=== PATIENT | female | born 1975 | race Caucasian/White ===

== ENCOUNTER 2025-02-12 10:34 | Day surgery (SDC) | payer OTHER, SELFPAY ==
[2025-02-12 10:57] VITALS: BP 129/54; PULSE 72; RESP 16; TEMP 36.4; O2SAT 98; BMI 42.5
[2025-02-12 11:04] LABS: Internal QC Validated? YES +Cl - CLEAR BKGD; Pregnancy, Urine Negative Negative
[2025-02-12] MEDS: Lidocaine 1% /Epi 1:100 (20ml) 20 ML Vial (12:02)
[2025-02-12 12:04] VITALS: BP 121/61; BP 128/59; O2SAT 100
--- NOTE | 2025-02-12 12:18 | PCM.OPRPT ---
Operative Report (Standard) Operative Information Date of Procedure: 02/12/25 Pre-Operative Diagnosis: Right carpal tunnel syndrome Post-Operative Diagnosis: Right carpal tunnel syndrome Surgery/Procedure Performed: Right open carpal tunnel release inspector floor: Yes Supply Chain Technician: Gela Jensen Tasks completed by warehouse administrative assistant: Opening & closing Type of Anesthesia: Local RN Documented Start/Stop Times: Operation Date: 02/12/25 12:15 Case Time Into Pre-Op 02/12/25 10:57 Out of Pre-Op 02/12/25 12:01 Into Room 02/12/25 12:02 Procedure Start 02/12/25 12:10 Procedure Start Time: 12:10 Procedure Stop Time: 12:20 Select all DRAINS/GRAFTS/IMPLANTS that apply: None Estimated Blood Loss: 2 cc Specimen collected: No Description of surgery: Description of procedure: Patient was identified the preoperative holding area by name, medical record number, and date of . The operative extremity was marked. All questions were answered to patient satisfaction. Informed consent was confirmed with the patient. At time of the procedure, patient brought the operative suite and positioned supine on a standard operating table and hand table was attached to the patient's operative side. I performed a tumescent field block with 10 cc total 1% lidocaine with epinephrine 1: 100,000. We then prepped and draped the operative upper extremity normal, sterile orthopedic fashion. We performed a timeout with all parties in attendance in agreement the side, site, operation be performed. No concerns voiced and we elected proceed with surgery. No antibiotics were administered prior to the procedure. I first confirmed anesthesia with Adson forceps on the skin. A standard longitudinal was made in line with the fourth ray proximal to Schultz's cardinal line and distal to the wrist crease. Full-thickness skin flaps were developed sharply down to level palmar fascia. Heiss retractor was placed. Palmar fascia was split in line with the incision. Heiss retractor was taken deeper. Transverse carpal ligament was identified and split in line with the incision along its ulnar border. Proximal and distal releases were completed. Identification of perivascular fat was noted distally. No aberrancies in the median nerve were noted. The wound was copiously irrigated with normal saline solution. Tourniquet was deflated. Hemostasis was achieved with bipolar cautery. Skin was reapproximated with interrupted horizontal mattress 4-0 nylon suture. A bulky dressing was applied. She tolerated procedure well without apparent complication. Patient was transferred back to same-day surgery in stable condition. Postoperative plan: Patient be discharged home today after meeting same-day surgery criteria. Patient will be weightbearing less than 3 pounds to the operative hand. She will follow-up in approx 14 days days for suture removal and wound check. Active range of motion encouraged. Short prescription of Tramadol provided, encouraged to take [id number] Tylenol primarily for pain. Ice and elevation encouraged. Surgical Findings: No aberrancies of the median nerve. Complete release of the transverse carpal ligament. Complications Complications: No Admit VTE Documentation VTE Present on Admission: No VTE Mechan Device Prophylaxis: None VTE Pharm Prophylaxis ordered?: No Reason prophylaxis not ordered: Treatment Not Indicated
[2025-02-12 12:25] VITALS: BP 103/59; BP 129/54; PULSE 79; RESP 18; TEMP 36.3; O2SAT 100
[2025-02-12 12:47] VITALS: BP 129/54
== END 2025-02-12 12:50 | disposition home or self-care (01) ==
LOC: SDC 10:36 → AC 10:37
PROVIDERS: Student in an Organized Health Care Education/Training Program; PCP Family Medicine; Referring Provider Student in an Organized Health Care Education/Training Program; Visit Provider Student in an Organized Health Care Education/Training Program
PROC: (CPT 64721; principal; 2025-02-12 12:00)
DX: G56.01 Carpal tunnel syndrome, right upper limb (principal); Z68.41 Body mass index [BMI] 40.0-44.9, adult; I10 Essential (primary) hypertension; E66.9 Obesity, unspecified; Z71.3 Dietary counseling and surveillance; Z79.01 Long term (current) use of anticoagulants; Z79.899 Other long term (current) drug therapy; Z86.711 Personal history of pulmonary embolism; Z86.718 Personal history of other venous thrombosis and embolism; Z86.16 Personal history of COVID-19
CPT/HCPCS: 64721; 81025